=== PATIENT | female | born 1990 | race Caucasian/White ===

== ENCOUNTER 2023-09-25 16:01 | Emergency (ER) | payer MEDICAID ==
[~2023-09-25] VITALS: Ht 165.1 cm; Wt 56.8 kg
[2023-09-25 16:11] VITALS: TEMP 98.6
[2023-09-25] MEDS ORDERED: SUBOXONE 8 MG-21 TAB SL (17:27)
[2023-09-25 17:42] VITALS: BP 108/66; PULSE 84
== END 2023-09-25 17:42 | disposition home or self-care (01) ==
LOC: COL.ER 16:01
DX: F11.10 Opioid abuse, uncomplicated (principal)